=== PATIENT | female | born 1960 | race Caucasian/White ===

== ENCOUNTER → 2020-08-04 10:54 | Outpatient (CLI) | payer BC, SELFPAY ==
--- NOTE | ~2020-08-04 | MM_ITS ---
EXAMINATION: MM screening milli BI w gloria HISTORY: Screening TECHNIQUE: Craniocaudal and mediolateral oblique 3-D tomosynthesis images were obtained and synthetic 2-D images were generated. CAD analysis was submitted and interpreted. COMPARISON: Comparison to multiple prior studies sequentially, with oldest reviewed study dated 07/2015. BREAST PARENCHYMAL COMPOSITION: There are scattered areas of fibroglandular density. FINDINGS: There is no evidence of suspicious mass, calcification, or architectural distortion to sugg est malignancy in either breast. There has been no suspicious interval change. IMPRESSION: 1. No mammographic evidence of malignancy. 2. Recommend routine screening mammography in one year. BI-RADS Category 1: Negative Reviewed, dictated and finalized at location A. 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
--- NOTE | ~2020-08-04 | DEXA_ITS ---
Bone Density Report Name: Malka Ryan Age: 60 Sex: Female Ethnicity: White Date of : 1960 Indication: postmenopausal; screening for osteoporosis; height loss; hysterectomy; Referring Provider: JOSE, PAULINA Study: Bone densitometry was performed. Exam Date: August 04, 2020 Accession number: [id number] Bone Density: Region BMD T-score Z-score Classification AP Spine (L1-L4) 1.004 -0.4 1.0 Normal Femoral Neck (Left) 0.737 -1.0 0.2 Normal Total Hip (Left) 0.855 -0.7 0.2 Normal Femoral Neck (Right) 0.770 -0.7 0.5 Normal Total Hip (Right) 0.855 -0.7 0.2 Normal Total Hip Mean 0.855 -0.7 0.2 Normal World Health Organization criteria for BMD impression classify patients as: Normal (T-score at or above -1.0), Osteopenia (T-score between -1.0 and -2.5), or Osteoporosis (T-score at or below -2.5). 10-year Fracture Risk: FRAX not reported because: All T-scores for Spine Total, Hip Total, Femoral Neck at or above -1.0 Previous Exams: Region Exam Age BMD T-score BMD Change BMD Change Date g/cm2 vs Baseline vs Previous AP Spine(L1-L4) 08/04/2020 60 1.004 -0.4 -0.075* -0.075* 09/17/2015 55 1.079 0.3 Total Hip(Left) 08/04/2020 60 0.855 -0.7 -0.038* -0.038* 09/17/2015 55 0.893 -0.4 Total Hip(Right) 08/04/2020 60 0.855 -0.7 -0.055* -0.055* 09/17/2015 55 0.909 -0.3 *Denotes significance at 95% confidence level, LSC for AP Spine = 0.022 g/cm2, LSC for Total Hip = 0.027 g/cm2 Clinical Information Provided by Patient: Has used the following medications: Calcium Has the following medical conditions: Hysterectomy Patient maximum height was 65.5 Menopause Age: 49 Drinks caffeinated beverages Onset of menses at age 15 Number of children 1 Impression: The patient has normal bone mass. The BMD for the AP Spine(L1-L4) decreased, changing by -0.075 since the last DXA exam. The BMD for the Total Hip(Left) decreased, changing by -0.038 since the last DXA exam. The BMD for the Total Hip(Right) decreased, changing by -0.055 since the last DXA exam. Discussion: BONE DENSITY IS ABOVE THE MINIMUM DESIRABLE LEVEL AT ALL SKELETAL SITES TESTED. This patient?s bone mineral density is above the minimum desirable level (T-score -1.0 or better) at all sites measured. The patient should follow a healthful lifestyle (good nutrition with adequate calcium and vitamin D, and appropriate weight-bearing
== END ==
PROVIDERS: Visit Provider Nurse Practitioner
DX: Z12.31 Encounter for screening mammogram for malignant neoplasm of breast (principal); Z78.0 Asymptomatic menopausal state
CPT/HCPCS: 77063; 77067; 77080

== ENCOUNTER 2021-03-12 08:29 | Emergency (ER) | payer BC, SELFPAY ==
[2021-03-12] VITALS (55 sets, daily range): BP systolic 124–142; BP diastolic 73–92; PULSE 66–93; RESP 7–20; TEMP 36.6; O2SAT 92–100
--- NOTE | ~2021-03-12 | CT_ITS ---
EXAMINATION: CT brain wo con DATE: 03/12/2021 16:51 INDICATION: Reassessment of intracranial hemorrhage. TECHNIQUE: Computed tomography (CT) of the head was performed without intravenous contrast. Sagittal and coronal reconstructions were performed. The mA was adjusted according to patient size. Iterative reconstruction technique was employed. The dose-length product was 605.33 mGy-cm. COMPARISON: head CT dated 03/12/2021 at 10:26 AM and 8:51 AM FINDINGS: Again seen is a small intraparenchymal hematoma in the anterior right frontal lobe which measures 15 x 13 x 10 mm in maximal dimensions in the current study each dimension <0.5 mm increased from the cor responding dimensions on both of the prior studies. No change in a small amount of surrounding vasoge vargas edema. No acute infarction or abnormal extra axial fluid collection. Ventricles are normal and sy mmetric. No other masses or mass effect. The orbits, paranasal sinuses and mastoid air cells are norm al. IMPRESSION: 1. No significant interval change in a 15 x 13 x 10 mm intraparenchymal hemorrhage in the anterior ri ght frontal lobe. Reviewed, dictated and finalized at location A. IMPRESSION: 1. No significant interval change in a 15 x 13 x 10 mm intraparenchymal hemorrh age in the anterior right frontal lobe.
--- NOTE | ~2021-03-12 | CT_ITS ---
EXAMINATION: CT brain wo con EXAM DATE: 03/12/2021 11:11 INDICATION: Reassess hemorrhage. TECHNIQUE: Spiral CT of the head was performed without contrast. Axial, coronal and sagittal images were reviewed. The dose-length product (DLP) for this examination was 605.33 mGy-cm. The exposure w as tailored according to patient size, and iterative reconstruction (ASIR) was used as additional dos e reduction technique. Comparison is made to prior examination from 849 a.m. same date. FINDINGS: There is right frontal lobe hemorrhagic contusion unchanged in size at 1.1 x 0.8 cm. Small amount of surrounding vasogenic edema. There is a right frontal scalp laceration. No underlying jane rial fracture. No extra-axial collections or obstructive hydrocephalus. Mild microangiopathy. IMPRESSION: 1. Stable small acute right frontal lobe hemorrhagic contusion. 2. Reportedly additional follow-up scheduled for 5 p.m. today. Reviewed, dictated and finalized at location A.
--- NOTE | ~2021-03-12 | CT_ITS ---
EXAMINATION: CT brain wo con EXAM DATE: 03/12/2021 09:08 INDICATION: Ground-level fall last night. TECHNIQUE: Spiral CT of the head was performed without contrast. Axial, coronal and sagittal images were reviewed. The dose-length product (DLP) for this examination was 605.33 mGy-cm. The exposure w as tailored according to patient size, and iterative reconstruction (ASIR) was used as additional dos e reduction technique. There is no prior study for comparison. FINDINGS: There is right frontal lobe hemorrhagic contusion, the size of hemorrhage measuring 1.1 x 0 .8 cm. Small amount of surrounding vasogenic edema. There is a deep right frontal scalp laceration. N o underlying calvarial fracture. No extra-axial collections or obstructive hydrocephalus. Mild microa ngiopathy. IMPRESSION: 1. Small acute right frontal lobe hemorrhagic contusion. 2. Scalp laceration. I discussed hemorrhagic contusion with Gilberto Rodgers MD at 03/12/2021 09:19 CDT. Reviewed, dictated and finalized at location A.
--- NOTE | 2021-03-12 08:55 | ED.HEATRA ---
HPI - Head Injury General Chief complaint: Head Injury Stated complaint: fall/laceration Time Seen by Provider: 03/12/21 08:48 History of Present Illness HPI Narrative: Patient presents with a head injury. Patient ports she was drinking last night when she tripped and struck her head on the concrete. Think she needed evaluation at times and she went to bed. She woke up this morning her consider come to the ER she may need some stitches. She has mild headache denies any focal numbness or weakness. She denies any clear aggravating or alleviating factors. She denies any nausea or vomiting, she denies any changes in vision. Denies use of any blood thinners Related Data Home Medications Medication Instructions Recorded Confirmed atorvastatin 03/12/21 escitalopram oxalate mg 03/12/21 Allergies Allergy/AdvReac Type Severity Reaction Status Date / Time sulfamethizole Allergy Unknown Nausea Verified 03/12/21 08:40 Review of Systems Review of Systems: CONSTITUTIONAL: Denies fever, chills, or sweats. EYES: Denies visual changes, redness, or discharge. ENT: Denies rhinorrhea, congestion, sore throat, or otalgia. CARDIOVASCULAR: Denies chest pain, palpitations, or edema. RESPIRATORY: Denies cough or dyspnea. GASTROINTESTINAL: Denies abdominal pain, nausea, vomiting, or diarrhea. GENITOURINARY: Denies dysuria or hematuria. SKIN: Denies rash or itching. MUSCULOSKELETAL: Denies back pain, joint pain, or myalgia. NEUROLOGIC: Denies numbness, dizziness, or weakness. PSYCHIATRIC: Denies anxiety or depression. All systems reviewed & are unremarkable except as noted in HPI and below Exam Narrative: GENERAL: Well-appearing, well-nourished, and in no acute distress. HEAD: Normocephalic, laceration on the right superior aspect of the frontal area without active bleeding no deep space structures identified no focal bony tenderness EYES: PERRLA and EOMI. ENT: Nares clear, no rhinorrhea or epistaxis. Mucous membranes moist. NECK: Supple. No masses. No midline neck pain EXTREMITIES: Normal range of motion. No edema. SKIN: Warm, dry, no rash. NEURO: Cranial nerves II through XII are intact patient has 5 out of 5 strength in all extremities sensation intact to light touch in all extremities alert and oriented x3. PSYCH: Normal mood and affect. Course Reevaluation(s) Reevaluation #1: Patient been evaluated multiple times with RVR pain has remained stable she has not developed any focal neurological deficits. Repeat CT obtained and discussed with Dr. Vega agrees findings are stable patient is approximately 20 hours after initial injuries with stable findings she is appropriate for continued outpatient follow-up patient information for neurosurgical team at [facility] Date: 03/12/21 Time: 18:27 Consultations Consultation #1: Case discussed with neurosurgeon Dr. Hanna [facility] is recommending repeat CT scan in 8 hours if stable patient could be disposition home Date: 03/12/21 Time: 09:47 Vital Signs Vital signs: Vital Signs Temperature 36.6 C 03/12/21 08:37 Pulse Rate 88 03/12/21 08:37 Respiratory Rate 20 03/12/21 08:37 Blood Pressure 140/81 03/12/21 08:37 Pulse Oximetry 100 03/12/21 08:37 Temperature 36.6 C 03/12/21 08:37 Pulse Rate 77 03/12/21 18:01 Respiratory Rate 17 03/12/21 18:01 Blood Pressure 134/83 03/12/21 18:00 Pulse Oximetry 94 03/12/21 18:01 Procedures Laceration Laceration 1: Date: 03/12/21 Site: scalp Size (cm): 1.5 Description: irregular Depth: simple, single layer Local Anesthetic: lidocaine 1% and with epi Amount of anesthesia used (mL): 3 Pre-repair: wound explored and irrigated ====== Skin Level ====== Skin layer closed with: nylon Size (cm): 3-0 Number of sutures: 2 Technique: simple, interrupted and other (Loose closure due to missing tissue) =
--- NOTE | 2021-03-12 09:12 | ECG_ITS ---
Measurements Intervals [place] Rate: 66 P: 54 SC: 138 QRS: 76 QRSD: 86 T: 62 QT: 384 QTc: 402 Interpretive Statements SINUS RHYTHM BASELINE ARTIFACT- II, III, AVL, AVF NORMAL ECG Electronically Signed On 03-12-2021 11:14:10 CDT by Makr Sierra D.O.
[2021-03-12] MEDS: TETANUS,DIPHTHERIA,AC PERTUSSIS ADULT (0.5 ML) BOOSTRIX IM (09:21)
[2021-03-12] MEDS: SODIUM CHLORIDE 0.9% IV 1,000 ML 999 ML IV CONT (09:25)
[2021-03-12 09:29] LABS: Basophils Percent Auto 0.2 % (0.2-1.2); Eosinophils Absolute Auto 0.1 K/mm3 (0-0.3); Eosinophils Percent Auto 0.6 % (0-4.4); Hematocrit 42.6 % (37.0-47.0); Hemoglobin 14.4 g/dL (12.0-15.0); Immature Granulocyte Absolute 0.03 K/mm3 (0.00-0.031); Immature Granulocyte Percent A 0.4 % (0-0.5); Lymphocytes Absolute Auto 0.79 K/mm3 (0.9-3.2); Lymphocytes Percent Auto 9.6 % (18.3-44.2); Mean Corpuscular HGB Conc 33.8 g/dl (32-36); Mean Corpuscular Hemoglobin 32.4 pg (26-34); Mean Corpuscular Volume 95.9 fl (80-100); Mean Platelet Volume 9.7 fl (7.4-10.4); Monocytes Absolute Auto 0.6 K/mm3 (0.1-0.6); Monocytes Percent Auto 6.8 % (2.6-8.5); Neutrophils Absolute Auto 6.8 K/mm3 (1.3-6.7); Neutrophils Percent Auto 82.4 % (45.5-73.1); Platelet Count Result 266 k/mm3 (150-375); Red Blood Count 4.44 M/mm3 (4.2-5.4); Red Cell Distribution Width 11.9 % (11.5-14.5); White Blood Count 8.2 K/mm3 (4.5-10.0)
[2021-03-12 09:39] LABS: Alanine Aminotransferase 22 U/L (4-35); Albumin Level 4.9 g/dL (3.5-5.1); Alkaline Phosphatase 51 U/L (38-126); Anion Gap 10 mmol/L (8-16); Aspartate Amino Transferase 27 U/L (14-36); Bilirubin,Total 0.4 mg/dL (0.2-1.3); Blood Urea Nitrogen 12 mg/dL (7-17); Calcium 9.5 mg/dL (8.4-10.2); Carbon Dioxide 26 mmol/L (22-30); Chloride 105 mmol/L (98-107); Estimated CRCL calculation 76 ml/min; Estimated Glomerular Filt Rate > 60; Glucose 94 mg/dL (65-110); Potassium 4.2 mmol/L (3.4-5.0); Sodium 141 mmol/L (137-145)
[2021-03-12 09:41] LABS: INR 0.8; Prothrombin Time 11.5 Seconds (11.1-14.7)
[2021-03-12 09:42] LABS: Partial Thromboplastin Time 25.5 SECONDS (22.3-36.8)
[2021-03-12 09:46] LABS: Ethanol 22 mg/dL (<10)
[2021-03-12 10:15] LABS: Add Urine Microscopic? YES; Appearance Urine Clear (Clear); Bacteria Urine Trace /hpf; Bilirubin Urine Negative (Negative); Blood Urine Negative (Negative); Color Urine Yellow (Yellow); Glucose Urine UA Negative (Negative); Ketones Urine Negative (Negative); Leukocyte Esterase Ur Negative LEU/UL (Negative); Mucus Urine Rare /lpf; Nitrate Urine Negative (Negative); Protein Urine Negative (Negative); RBC Urine 0-2 /hpf (0-2); Specific Grav Ur 1.009 (1.001-1.035); Squamous Epithelial Cell Urine Few /hpf (Few); Urobilinogen Urine Negative mg/dL (<2.0); WBC Urine 0-3 /hpf
== END 2021-03-12 18:50 | disposition home or self-care (01) ==
PROVIDERS: Emergency Provider Emergency Medicine
DX: S06.300A Unspecified focal traumatic brain injury without loss of consciousness, initial encounter (principal); S01.01XA Laceration without foreign body of scalp, initial encounter; Z79.899 Other long term (current) drug therapy; Z51.81 Encounter for therapeutic drug level monitoring; Z23 Encounter for immunization; Z88.2 Allergy status to sulfonamides; W01.10XA Fall on same level from slipping, tripping and stumbling with subsequent striking against unspecified object, initial encounter
CPT/HCPCS: 12001; 36415; 70450; 80053; 80307; 81001; 85025; 85610; 85730; 90471; 90715; 93005; 96360; 99284; J7030

== ENCOUNTER 2021-12-07 17:18 | Outpatient (CLI) | payer BC, SELFPAY ==
--- NOTE | ~2021-12-07 | XR_ITS ---
EXAMINATION: XR lumbar spine 2-3V DATE: 12/07/2021 17:55 INDICATION: Low back pain TECHNIQUE: Anteroposterior and lateral views of the lumbar spine, and cone-down lateral view of the l umbosacral junction were obtained. COMPARISON: 01/25/2019 FINDINGS: There is unchanged severe loss of intervertebral disc space height at L5-S1. The vertebral body heights are normal. There is no fracture. IMPRESSION: 1. Severe lumbar spondylosis at L5-S1 without acute findings or significant interval change. Reviewed, dictated and finalized at location F. IMPRESSION: 1. Severe lumbar spondylosis at L5-S1 without acute findings or significant int erval change.
== END 2021-12-07 17:19 | disposition home or self-care (01) ==
DX: M47.817 Spondylosis without myelopathy or radiculopathy, lumbosacral region (principal)
CPT/HCPCS: 72100

== ENCOUNTER 2022-02-04 08:00 | Emergency (ER) | payer BC, SELFPAY ==
[2022-02-04] VITALS (17 sets, daily range): BP systolic 136–159; BP diastolic 77–98; PULSE 55–79; RESP 7–20; TEMP 36.6; O2SAT 97–100
--- NOTE | ~2022-02-04 | XR_ITS ---
EXAMINATION: XR chest 2V DATE: 02/04/2022 08:31 INDICATION: Shortness of breath. Tachycardia. Chest pain. TECHNIQUE: Frontal and lateral views of the chest were obtained. COMPARISON: Chest 2 views 08/01/2012 FINDINGS: There is no pneumonia, pleural effusion, or pneumothorax. The heart size is normal. There i s a prominent right paracardial fat pad. IMPRESSION: 1. No acute cardiopulmonary disease. Reviewed, dictated and finalized at location A.
--- NOTE | ~2022-02-04 | CT_ITS ---
EXAMINATION: CTA chest PE protocol DATE: 02/04/2022 10:06 INDICATION: Chest pain and shortness of breath. Palpitations. TECHNIQUE: Computed tomography angiography (CTA) of the chest was performed with 100 mL Omnipaque-350 intravenous contrast timed to evaluate the pulmonary arteries. Coronal maximum intensity projection 3D-reconstructions were created by the technologist. Automated exposure control and iterative reconst ruction technique were employed. The dose-length product was 197.12 mGy-cm. COMPARISON: Chest 2 views 02/04/2022 FINDINGS: The lungs demonstrate mild dependent atelectasis. No pleural effusion. The heart size is no rmal. No pericardial effusion. There is no pulmonary embolus. There is a 2.4 cm cyst in the liver. Th ere is mild thoracic spondylosis. IMPRESSION: 1. No pulmonary embolus. Reviewed, dictated and finalized at location A. IMPRESSION: 1. No pulmonary embolus.
--- NOTE | 2022-02-04 08:03 | ECG_ITS ---
Measurements Intervals [place] Rate: 0 P: [place]: 0 QRS: QRSD: 0 T: QT: 0 QTc: 0 Interpretive Statements NORMAL SINUS RHYTHM NORMAL EKG COMPARED TO ECG 03/12/2021 09:29:28 NO SIGNIFICANT CHANGES Electronically Signed On 02-04-2022 15:11:25 CDT by Leslye Roche M.D.
[2022-02-04 08:21] LABS: Basophils Percent Auto 0.4 % (0.2-1.2); Eosinophils Absolute Auto 0.1 K/mm3 (0-0.3); Eosinophils Percent Auto 2.5 % (0-4.4); Hematocrit 40.9 % (37.0-47.0); Hemoglobin 13.9 g/dL (12.0-15.0); Immature Granulocyte Absolute 0.01 K/mm3 (0.00-0.031); Immature Granulocyte Percent A 0.2 % (0-0.5); Lymphocytes Absolute Auto 1.16 K/mm3 (0.9-3.2); Lymphocytes Percent Auto 23.9 % (18.3-44.2); Mean Corpuscular Hemoglobin 31.3 pg (26-34); Mean Corpuscular Volume 92.1 fl (80-100); Mean Platelet Volume 9.6 fl (7.4-10.4); Monocytes Absolute Auto 0.6 K/mm3 (0.1-0.6); Monocytes Percent Auto 11.8 % (2.6-8.5); Neutrophils Percent Auto 61.2 % (45.5-73.1); Platelet Count Result 317 k/mm3 (150-375); Red Blood Count 4.44 M/mm3 (4.2-5.4); Red Cell Distribution Width 12.4 % (11.5-14.5); White Blood Count 4.9 K/mm3 (4.5-10.0)
[2022-02-04 08:51] LABS: Prothrombin Time 12.7 Seconds (11.1-14.7)
[2022-02-04 08:52] LABS: Partial Thromboplastin Time 27.2 SECONDS (22.3-36.8)
[2022-02-04 08:56] LABS: Alanine Aminotransferase 21 U/L (6-35); Albumin Level 4.7 g/dL (3.5-5.1); Alkaline Phosphatase 51 U/L (38-126); Anion Gap 9 mmol/L (8-16); Aspartate Amino Transferase 42 U/L (14-36); Bilirubin,Total 0.8 mg/dL (0.2-1.3); Blood Urea Nitrogen 15 mg/dL (7-17); Calcium 9.2 mg/dL (8.4-10.2); Carbon Dioxide 26 mmol/L (22-30); Chloride 102 mmol/L (98-107); Estimated CRCL calculation 73 ml/min; Estimated Glomerular Filt Rate > 60; Glucose 97 mg/dL (65-110); Lipase 92 U/L (23-300); Potassium 4.1 mmol/L (3.4-5.0); Sodium 137 mmol/L (137-145)
[2022-02-04 09:04] LABS: Troponin I < 0.012 ng/mL (0.000-0.034)
--- NOTE | 2022-02-04 09:07 | ED.CHESTPAIN ---
HPI - Chest Pain General Chief Complaint: Chest Pain Stated Complaint: CP Time Seen by Provider: 02/04/22 09:00 Source: patient Mode of arrival: ambulatory Limitations: no limitations History of Present Illness HPI narrative: Patient is a 61-year-old female who presents the ED with report of chest pain and SOB. Patient reports she was diagnosed with COVID-19 on 01/21. She states she was fairly ill with this and has been having left-sided chest tightness and difficulty breathing for the past few weeks since being diagnosed. She states over this past weekend, symptoms seem to become worse. Chest pain described as a tightness, left-sided chest, does not seem to be aggravated with exertion, fairly constant, nonpleuritic. Shortness of breath does seem to be worse with exertion. Patient also reporting heart palpitations, but denies fever, cough, history of blood clots, BLE pain or edema, nausea, vomiting, abdominal pain. History of hyperlipidemia, denies history of hypertension, diabetes mellitus, smoking. Does have family history of heart disease in her mother in her 70s. Related Data Home Medications Medication Instructions Recorded Confirmed atorvastatin 10 mg tablet 03/12/21 escitalopram oxalate 10 mg tablet mg 03/12/21 Allergies Allergy/AdvReac Type Severity Reaction Status Date / Time sulfamethizole Allergy Unknown Nausea Verified 03/12/21 08:40 Review of Systems Review of Systems: CONSTITUTIONAL: Denies fever, chills, or sweats. CARDIOVASCULAR: Reports left chest pain/tightness, palpitations. Denies BLE edema. RESPIRATORY: Reports SOB, FONSECA. Denies cough. GASTROINTESTINAL: Denies abdominal pain, nausea, vomiting, or diarrhea. MUSCULOSKELETAL: Denies BLE pain, back pain. All systems reviewed & are unremarkable except as noted in HPI and below PMFSH Past Medical History Medical History (Updated 02/04/22 @ 12:01 by Nena Ramires PA-C) Hyperlipidemia Sleep apnea Surgical History Surgical History (Updated 02/04/22 @ 09:47 by Nena Ramires PA-C) History of hysterectomy History of tonsillectomy and adenoidectomy Social History Social History (Updated 02/04/22 @ 09:47 by Nena Ramires PA-C) Smoking status: Never smoker Substance use: current Substance use type: marijuana Exam Narrative: GENERAL: Well appearing, well-nourished, non-toxic, in no acute distress. HEAD: Normocephalic, atraumatic. NECK: Supple. No adenopathy, no masses. RESPIRATORY: Airway patent, respirations nonlabored. Clear to auscultation bilaterally, no rales, rhonchi, wheezing. No pain with deep breaths. CARDIOVASCULAR: Regular rate and rhythm without murmurs, rubs, or gallops. Peripheral pulses 2+ and equal bilaterally. ABDOMINAL: Soft, nontender, nondistended, no hepatosplenomegaly. Normoactive BS. MUSCULOSKELETAL: Moves all extremities. Strength/ROM intact without gross deformities or TTP. No edema. No calf tenderness. No chest wall tenderness to palpation. SKIN: Warm, dry, normal color. No rashes. NEURO: A&O X3. Speech clear. Cranial nerves II-XII grossly intact. Steady gait. No ataxic movements. PSYCHIATRIC: Appropriate mood and affect. Normal interaction. Course Vital Signs Vital signs: Vital Signs Temperature 97.8 F 02/04/22 08:04 Pulse Rate 79 02/04/22 08:04 Respiratory Rate 20 02/04/22 08:04 Blood Pressure 151/92 H 02/04/22 08:04 Pulse Oximetry 99 02/04/22 08:04 Oxygen Delivery Room Air 02/04/22 08:04 Temperature 97.8 F 02/04/22 08:04 Pulse Rate 61 02/04/22 11:46 Respiratory Rate 16 02/04/22 11:46 Blood Pressure 145/81 H 02/04/22 11:46 Pulse Oximetry 99 02/04/22 11:46 Oxygen Delivery Room Air 02/04/22 08:13 MDM - Chest Pain MDM Narrative Medical decision making narrative: Patient presented to ED with report of left-sided chest pain/tightness, shortness of breath, palpitations. Recent history of COVID-19. Patient's EKGs and labs are without s
[2022-02-04 11:38] LABS: Troponin I < 0.012 ng/mL (0.000-0.034)
== END 2022-02-04 12:05 | disposition home or self-care (01) ==
PROVIDERS: Emergency Provider Emergency Medicine
DX: R07.9 Chest pain, unspecified (principal); Z86.16 Personal history of COVID-19; E78.5 Hyperlipidemia, unspecified; G47.30 Sleep apnea, unspecified
CPT/HCPCS: 36415; 71046; 71275; 80053; 83690; 84484; 85025; 85610; 85730; 93005; 99284; Q9967

== ENCOUNTER → 2022-03-13 16:55 | Outpatient (CLI) | payer BC, SELFPAY ==
--- NOTE | ~2022-03-13 | MM_ITS ---
EXAMINATION: MM screening milli BI w gloria HISTORY: Screening mammogram TECHNIQUE: Craniocaudal and mediolateral oblique 3-D tomosynthesis images were obtained and synthetic 2-D images were generated. CAD analysis was submitted and interpreted. COMPARISON: August 04, 2020, April 06, 2019, February 11, 2018 bilateral screening mammogram examin ations BREAST PARENCHYMAL COMPOSITION: There are scattered areas of fibroglandular density. FINDINGS: There is no evidence of suspicious mass, calcification, or architectural distortion to sugg est malignancy in either breast. There has been no suspicious interval change. IMPRESSION: 1. No mammographic evidence of malignancy. 2. Recommend routine screening mammography in one year. BI-RADS Category 1: Negative Reviewed, dictated and finalized at location A.
== END ==
PROVIDERS: PCP Obstetrics & Gynecology Gynecology; Visit Provider Obstetrics & Gynecology Gynecology
DX: Z12.31 Encounter for screening mammogram for malignant neoplasm of breast (principal)
CPT/HCPCS: 77063; 77067

== ENCOUNTER 2023-08-26 16:18 | Outpatient (CLI) | payer BC, SELFPAY ==
--- NOTE | ~2023-08-26 | MM_ITS ---
EXAMINATION: MM screening milli BI w gloria HISTORY: Screening mammogram TECHNIQUE: Craniocaudal and mediolateral oblique 3-D tomosynthesis images were obtained and synthetic 2-D images were generated. CAD analysis was submitted and interpreted. COMPARISON: 02/10/2022, bilateral screening mammogram examinations BREAST PARENCHYMAL COMPOSITION: Biopsy marker on the right; history of prior bilateral benign breast biopsies. FINDINGS: There is no evidence of suspicious mass, calcification, or architectural distortion to sugg est malignancy in either breast. There has been no suspicious interval change. IMPRESSION: 1. No mammographic evidence of malignancy. 2. Recommend routine screening mammography in one year. BI-RADS Category 1: Negative Reviewed, dictated and finalized at location A.
== END 2023-08-26 16:19 ==
PROVIDERS: PCP Nurse Practitioner; Visit Provider Nurse Practitioner
DX: Z12.31 Encounter for screening mammogram for malignant neoplasm of breast (principal)
CPT/HCPCS: 77063; 77067